=== PATIENT | female | born 1965 | race Caucasian/White ===

== ENCOUNTER 2017-07-24 07:42 | Emergency (ER) | payer BC ==
[2017-07-24] MEDS ORDERED: Dexamethasone 4 MG TAB ONE (09:07)
--- NOTE | 2017-07-24 09:07 | RAD ---
CHEST 2 VIEWS: HISTORY: Cough. COMPARISON: None. FINDINGS: The lungs are clear. No pneumothorax or effusion. Cardiac silhouette and mediastinal contours are w ithin normal limits. No acute osseous abnormality. IMPRESSION: No acute intrathoracic abnormality. POS: [facility]
== END 2017-07-24 09:12 | disposition home or self-care (01) ==
LOC: ERS 07:42
DX: J20.9 Acute bronchitis, unspecified (principal); I10 Essential (primary) hypertension; F41.9 Anxiety disorder, unspecified; F32.9 Major depressive disorder, single episode, unspecified; Z79.899 Other long term (current) drug therapy
CPT/HCPCS: 71046; J8540

== ENCOUNTER 2017-12-06 13:28 | Outpatient (CLI) | payer BC | END 2017-12-06 13:29 | disposition home or self-care (01) | LOC: BICULT 13:28 | PROVIDERS: ATTEND Orthopaedic Surgery | DX: M79.89 Other specified soft tissue disorders (principal); M79.661 Pain in right lower leg ==

== ENCOUNTER 2018-06-11 08:08 | Observation (INO) | payer BC ==
[2018-06-11 09:17] LABS: #Basophils 0.1 thou/uL (0.0-0.2); #Eosinphils 0.4 thou/uL (0.0-0.7); #Monocytes 0.6 thou/uL (0.11-0.59); #Neutrophils 4.8 thou/uL (1.40-6.50); %Basophils 1.2 % (0.0-1.0); %Eosinophils 4.6 % (0.0-10.0); %Monocytes 6.3 % (0.0-10.0); Hemoglobin 13.1 g/dL (12.0-16.0); Mean Corpuscular HGB CONC 33.7 g/dL (32.0-36.0); Mean Corpuscular Hemoglobin 29.5 pg (27.0-31.0); Mean Corpuscular Volume 87.6 fL (78.0-98.0); Mean Platelet Volume 7.7 fL (7.4-10.4); Platelet Count 274 thou/uL (130-400); RBC Distribution Width 12.2 % (11.5-14.5); Red Blood Cell (RBC) Count 4.43 mill/uL (4.20-5.40); White Blood Cell (WBC) Count 8.9 thou/uL (4.8-10.8)
[2018-06-11 09:37] LABS: ALT (SGPT) 16 U/L (8-55); AST (SGOT) 18 U/L (5-34); Alkaline Phosphatase 81 U/L (40-150); Anion Gap 10 mmol/L (10-20); BUN (Urea Nitrogen) 16 mg/dL (9.8-20.1); Bilirubin, Total 0.6 mg/dL (0.2-1.2); Calc. Creatinine Clearance 0 mL/min (70-130); Calcium 9.6 mg/dL (7.8-10.44); Carbon Dioxide 30 mmol/L (22-29); Chloride 105 mmol/L (98-107); Estimated GFR-MDRD 71; Globulin 3.5 g/dL (2.4-3.5); Glucose 90 mg/dL (70-105); Potassium 3.9 mmol/L (3.5-5.1); Protein, Total 7.5 g/dL (6.0-8.3); Sodium 141 mmol/L (136-145)
--- NOTE | 2018-06-11 09:44 | RAD ---
FRONTAL VIEW CHEST: Date 06/11/18 COMPARISON: 07/24/17. CLINICAL INDICATION: Chest pain. FINDINGS: Cardiac silhouette is accentuated. No lobar consolidation, effusion, or pneumothorax. Chest otherwise grossly stable. IMPRESSION: No focal consolidation. POS: [facility]
[2018-06-11] MEDS ORDERED: ISOVUE-370 76%-LOCM 1 ML ONE (09:54)
[2018-06-11] MEDS ORDERED: cefTRIAXone\\ROCEPHIN 2 GM VIAL ONE (10:56)
[2018-06-11] MEDS ORDERED: Aspirin Chewable 81 MG TAB ONE (10:56)
[2018-06-11] MEDS ORDERED: Nitroglycerin 0.4 MG TAB 1 EACH ONE (10:56)
--- NOTE | 2018-06-11 11:14 | ULT ---
ULTRASOUND WITH DOPPLER DUPLEX VENOUS LOWER EXTREMITY RIGHT: CPT: 66311 ICD-10-PCS: B54D INDICATION: Right lower extremity pain and edema. TECHNIQUE: Color flow Doppler, spectral waveform analysis of pulsed Doppler, and crystal-scale imaging with db mehnaz and augmentation, were used to evaluate the right common femoral, femoral, popliteal, posterior tibial, and superficial femoral, veins; and the proximal portions of the profunda femoral and greater saphenous, veins. FINDINGS: There is appropriate compressibility and flow within the imaged deep venous system of the right lower extremity without evidence of deep venous thrombosis. IMPRESSION: No deep venous thrombosis. POS: [facility]
--- NOTE | 2018-06-11 11:50 | CT ---
CT ANGIOGRAM THORAX WITH IV CONTRAST AND 3D RECONSTRUCTIONS: Date: 06/11/18 HISTORY: Chest pain. Patient reports substernal chest pain for 3 days. COMPARISON: None available. FINDINGS: Thoracic aorta is normal in caliber without evidence of an aortic dissection. No definite filling def ect is seen within the pulmonary arteries to suggest a pulmonary embolus. There is slight heterogenei ty within the enhancement of the lower lobe pulmonary arteries bilaterally. This is likely artifactua l as opposed to filling defect related to pulmonary embolus. There are scattered ground-glass opacities within the bilateral upper lobes and lower lobes, as well as the right middle lobe. These findings may be related to multifocal areas of pneumonia/pneumonitis. There are two noncalcified pulmonary nodules in the left lower lobe, each measuring approximately 6.0 mm, with what appears to be an additional pulmonary nodule within the superior segment of the left l ower lobe. There is a small, noncalcified pulmonary nodule in the right middle lobe measuring 5.0 mm. Continued follow-up is recommended. There is no evidence of lymphadenopathy. Imaging of the visualized upper abdomen demonstrates post cholecystectomy changes. Degenerative changes are noted in the spine. IMPRESSION: 1. Multifocal ground-glass densities throughout the lungs bilaterally suggesting multifocal infectio us process. Follow-up to resolution is recommended. 2. Noncalcified pulmonary nodules in the left lower lobe and right middle lobe measuring up to 6.0 m m. Follow-up evaluation in 6 months is recommended. 3. No CT evidence of a pulmonary embolus. POS: [facility]
[2018-06-11] MEDS ORDERED: traZODone HCl 50 MG TAB PO PRN (11:59)
[2018-06-11] MEDS ORDERED: Acetaminophen 325 MG TAB PO PRN (11:59)
[2018-06-11] MEDS ORDERED: Azithromycin 500 MG VIAL ONE (12:11)
--- NOTE | 2018-06-11 12:26 | HP ---
PRIMARY CARE PHYSICIAN: Kirit Mai, CHIEF COMPLAINT: Chest heaviness and elevated blood pressure. HISTORY OF PRESENT ILLNESS: This is a 52-year-old female patient with a history of hypertension, anxiety, hyperlipidemia, and chronic estrogen usage, who presented to the Emergency Department with several weeks of on and off chest pressure. Some shortness of breath. The patient states that she has been under lot of undue stress at work. Her mother has been ill for the past several years as well. She has had episodes of elevated blood pressure up to 150/96. Upon presenting to the Emergency Department, her blood pressure was 204/92, which makes her more anxious and causes the pain to be worse. In the Emergency Department, she had negative cardiac enzymes. Stable EKG, but had slightly elevated D-dimer at 0.52, underwent CT angiogram as well as venous Dopplers. CT angiogram was reportedly gave evidence of possible pneumonia. She was given IV antibiotics. She does admit to persistent episodes of upper respiratory congestion. She has had some chills, but no fevers. No cough. No shortness of breath. No other signs of pneumonia. She is now being admitted for further evaluation for rule out [place] and rule out coronary syndrome. PAST MEDICAL HISTORY: Hypertension, hyperlipidemia, anxiety, and depression. MEDICATIONS: At home include; 1. Lisinopril. 2. Prozac. 3. Bupropion. 4. Trazodone. 5. Simvastatin. 6. Estradiol. PAST SURGICAL HISTORY: She reports having had a stress test back in 2010, which she reports being negative as she has a history of pulmonary nodules, which was worked up at [facility] in the past, but never had a biopsy. SOCIAL HISTORY: She is single. She quit smoking about 8 years ago and was smoking on and off before then. Rare alcohol usage. REVIEW OF SYSTEMS: As per the history of present illness. GENERAL: She denies any recent fevers or recent illness. HEENT: Denies headache. Denies upper respiratory symptoms. Does have occasional congestion. CARDIAC: Positive chest pain. Occasional shortness of breath. No palpitations. PULMONARY: History of pulmonary nodules. No hemoptysis. No cough at this time. GI: No nausea, vomiting, abdominal pain, melena, or hematochezia. : Denies dysuria or hematuria. NEUROLOGIC: No weakness, seizure or syncope. PHYSICAL EXAMINATION: VITAL SIGNS: She is afebrile. Pulse 70s to 80s, respirations 12 to 14, and blood pressure 151/96. GENERAL: She is awake and alert. No acute distress. Speech is clear. She is pleasant, no acute distress. HEENT: Mucosa is moist. NECK: Supple. No JVD, adenopathy, or bruits. HEART: Regular rate and rhythm with no murmurs. LUNGS: Clear bilaterally. ABDOMEN: Obese, soft, nontender, and nondistended. No hepatosplenomegaly. EXTREMITIES: No clubbing, cyanosis, or edema. 2+ peripheral pulses bilaterally. No calf tenderness. Negative Rusty sign. LABORATORY DATA: Sodium 141, potassium 3.9, chloride 105, CO2 of 30, BUN and creatinine 16 and 0.84, serum glucose of 90, and AST and ALT are normal. Troponin is less than 0.01 and BNP of 31.1. D-dimer 0.52. White blood cell count 8.9, hemoglobin and hematocrit 13.1 and 38.8, and platelets 274. Chest x-ray showed no active disease. Venous Doppler showed no DVT. CT angiogram of the chest, final report is pending. ASSESSMENT AND PLAN: 1. This is a 52-year-old female patient with risk factors including obesity, family history, history of smoking, hypertension, and hyperlipidemia, now with persistent chest heaviness for the past 2 weeks. I will admit to telemetry. Continue rule out myocardial infarction protocol. We will schedule a stress echo and Cardiology consultation for further risk stratification. 2. Hypertension. We will continue her medications as well as clonidine as needed for hypertension. 3. Hyperlipidemia. We will continue moderately dosed statin therapy. Initiate aspirin therapy as well. I will discontinue her hormone therapy due to her risk factors for coronary artery disease. Further plan as per workup continues. 4. Abnormal CT chest. She has a history of pulmonary nodules. No clinical sign of pneumonia or heart failure. Will follow up Job ID: [id number] [facility]
[2018-06-11] MEDS ORDERED: PROVENTIL INHALER 6.7 G (200 INHALATIONS) INH PRN (13:00)
[2018-06-11 13:17] VITALS: BMI 42.3
[2018-06-11] MEDS ORDERED: cloNIDine 0.1 MG TAB PO PRN (15:00)
[2018-06-11] MEDS ORDERED: Amlodipine 5 MG TAB PO SCH (16:45)
--- NOTE | 2018-06-11 18:30 | CON ---
DATE OF CONSULTATION: 06/11/2018 INDICATION FOR CONSULTATION: A 52-year-old female with chest pain or chest pressure with the risk factors for coronary artery disease. HISTORY OF PRESENT ILLNESS: This is a very pleasant 52-year-old female actually is a durable patient of [facility]. She has a history of anxiety, hypertension, and hypercholesterolemia. She has noted some headaches and chest pressure and some mild blurred vision for the last several days and was noticing the blood pressure has been creeping up when she has been checking at [employer] and knows it continually gotten higher every day she checked it. She has had stress testing in the past, which was unremarkable. She has had workups in the past for lung nodules, which have been continued to watch for were not felt to be of any significance thus far. She had a CT of the chest when she came in this time, which did show again the 6.0 mm nodule in the left lower lobe with multiple ground-glass appearances, which could be infectious etiology, but she has no fevers and denies any significant other illness that would indicate pneumonia. She also was evaluated and was found to have no DVTs. At this time, she is comfortable. Her EKG is unremarkable. Her cardiac enzymes are negative. She has had an echocardiogram performed. We will evaluate that. She is also undergoing a two-day protocol for stress test and we will also evaluate those results. PAST MEDICAL HISTORY: Significant for hypertension. She has had chronic hematuria. She had had hypercholesterolemia and anxiety. SOCIAL HISTORY: She has 3 children. No heart disease. She is presently . She stops smoking many years ago, but at that time she took a half a pack a day for two years. Alcohol is none. FAMILY HISTORY: Her mother has significant coronary artery disease and cardiomyopathy and recently had a defibrillator implanted. ALLERGIES: NONE. MEDICATIONS: Prior to admission included: 1. Simvastatin 20 mg a day. 2. Lisinopril/hydrochlorothiazide 10/12.5 once a day. 3. Trazodone. 4. Estradiol. 5. Prozac. 6. Wellbutrin. REVIEW OF SYSTEMS: A 12-point review of systems, she mainly complains of some mild edema of the right ankle and lower leg, and she has some vertigo and some hematuria. Otherwise, 12-point review of systems unremarkable except as noted in the history of present illness. PHYSICAL EXAMINATION: GENERAL: Reveals a well-developed, well-nourished female. VITAL SIGNS: Blood pressure is elevated at 183/77, heart rate is 66 and regular, respiratory rate is 18, O2 saturation 99%. HEENT: Shows the head to be normocephalic and atraumatic. Carotid pulses are present. There are no bruits. No JVD. The thyroid is not enlarged. Oral mucosa is pink and moist. CHEST: Clear to auscultation. No rales, rhonchi, or wheezing. CARDIOVASCULAR: Reveals a regular rate and rhythm with normal S1, S2. There is no S3 or S4. There were no significant murmurs, heaves, thrills, bruits or rubs. ABDOMINAL: Shows obesity with positive bowel sounds. No organomegaly or masses are noted. Femoral pulses difficult to palpate but are present. EXTREMITIES: Pedal pulses are present also and there is no lower extremity edema. NEUROLOGIC: She appears to be fully intact without any gross focal motor deficit. She is able to ambulate without any difficulties. SKIN: Warm and dry. IMAGING DATA: Her EKG is unremarkable, which shows normal sinus rhythm without any acute changes. LABORATORY DATA: As noted, hemoglobin 13.1. Negative cardiac enzymes. Potassium 3.9, creatinine of 0.84, blood sugar of 90. IMPRESSION: 1. Chest discomfort, which may be due to anxiety or hypertension. We will continue to modify the medications and she will be followed by her primary care physician for the chest pressure. 2. Hypertension. We will need to modify the medications, also start her on Norvasc to get better blood pressure control. 3. Hypercholesterolemia. I did not have a recent cholesterol level. We can obtain a fasting lipid profile tomorrow morning to see exactly where her cholesterol is and she may need to have further increase in the medication for the cholesterol or the statin medications. 4. Anxiety. This will be dealt with by the primary care service. 5. Obesity. I have suggested that she try to lose some weight by diet and exercise. Thank you very much for allowing us to participate in the care of this patient. Further recommendations will depend on the results of the echocardiogram as well as stress test. Job ID: [id number]
[2018-06-11] MEDS: buPROPion HCl 100 MG TAB PO SCH (20:47)
[2018-06-11] MEDS ORDERED: buPROPion 75 MG TAB PO SCH (21:00)
[2018-06-11] MEDS ORDERED: Simvastatin 40 MG TAB PO SCH (21:00)
[2018-06-12 06:39] LABS: ALT (SGPT) 16 U/L (8-55); AST (SGOT) 18 U/L (5-34); Albumin 3.9 g/dL (3.5-5.0); Alkaline Phosphatase 71 U/L (40-150); Anion Gap 10 mmol/L (10-20); BUN (Urea Nitrogen) 11 mg/dL (9.8-20.1); Bilirubin, Total 0.6 mg/dL (0.2-1.2); Calc. Creatinine Clearance 157 mL/min (70-130); Calcium 9.2 mg/dL (7.8-10.44); Carbon Dioxide 28 mmol/L (22-29); Cardiac Risk 2.9 (Less than 4.5); Chloride 105 mmol/L (98-107); Cholesterol 150 mg/dl (< 200 Desired); Estimated GFR-MDRD 80; Globulin 3.3 g/dL (2.4-3.5); Glucose 102 mg/dL (70-105); HDL Cholesterol 52 mg/dL (>60 Neg Risk); LDL Cholesterol, Calculated 83 mg/dL; Potassium 3.8 mmol/L (3.5-5.1); Protein, Total 7.2 g/dL (6.0-8.3); Sodium 139 mmol/L (136-145); Triglycerides 77 mg/dL (Less than 150)
[2018-06-12] MEDS: buPROPion HCl 100 MG TAB PO SCH (08:49)
[2018-06-12] MEDS ORDERED: Aspirin 81 mg Enteric Coated Tablet PO SCH (09:00)
[2018-06-12] MEDS ORDERED: Lisinopril/Hydrochlorothiazide 10 mg/12.5 mg Tablet PO SCH (09:00)
[2018-06-12] MEDS ORDERED: Enoxaparin Sodium 40 MG/0.4 ML SYRINGE SC SCH (09:00)
[2018-06-12] MEDS ORDERED: FLUoxetine HCl 20 MG CAP PO SCH (09:00)
[2018-06-12] MEDS ORDERED: Amlodipine 5 MG TAB PO SCH (09:00)
[2018-06-12] MEDS ORDERED: Regadenoson 0.4 MG/5 ML SYRINGE ONE (10:14)
--- NOTE | 2018-06-12 11:44 | PDOC.CTH ---
Cardiology Progress Note - Subjective The pt seen and examined. No overnight events. No cardiac complaints. - Objective Vital Signs Temp Pulse Resp BP BP Pulse Ox 06/12/18 08:49 67 06/12/18 08:48 67 06/12/18 07:55 98.9 F 67 20 136/73 96 06/12/18 03:15 98 F 65 18 153/79 H 95 06/12/18 02:07 97.7 F 70 20 183/82 H 97 Weight 254 lb 06/11/18 06/12/18 06/13/18 06:59 06:59 06:59 Intake Total 790 Output Total 1000 Balance -210 - Physical Examination General/Neuro: alert & oriented x3 Neck: no JVD present Lungs: CTA Heart: RRR Abdomen: soft Extremities: other: (No edema) - Labs Result Diagrams: 06/11/18 09:09 06/12/18 05:12 Troponin/CKMB Troponin I Less than 0.010 ng/mL (< 0.028) 06/11/18 14:45 - Assessment/Plan 1. CP - Stress test was done today and the result is pending for now 2. HTN - well controlled with current medication 3. Hyperlipidemia - on Zocor 40mg with well controlled cholesterol 4. Anxiety - MAR reviewed * When the pt's stress test is negative, the pt is stable to d/c home. The pt will f/u with Dr Nails' office within 2 wks. Pt. seen andc eval. by me. I agree with the A/P by the [facility]. I reviewed the stress test and this is normal. there is a very small area at the apex that may indicate reversible ischemia but no indication to cath. Continue medical Tx. She can f/u with me in a month. Chest clear. RRR. Review of Systems - Review of Systems Constitutional: reports: no symptoms reported EENTM: reports: no symptoms reported Respiratory: reports: no symptoms reported Cardiac (ROS): reports: no symptoms reported ABD/GI: reports: no symptoms reported : reports: no symptoms reported Musculoskeletal: reports: no symptoms reported
[2018-06-12 15:55] VITALS: BP 127/60; TEMP 97.9
--- NOTE | 2018-06-12 15:56 | DIS ---
DATE OF ADMISSION: 06/11/2018 DATE OF DISCHARGE: 06/12/2018 PRIMARY CARE PHYSICIAN: Mitul Mai, DO ADMISSION DIAGNOSES: Chest pain and elevated blood pressure. DISCHARGE DIAGNOSES: Atypical noncardiac chest pain, elevated blood pressure, abnormal CT chest, pulmonary nodule, hypertension, and hyperlipidemia. CONSULTATIONS: Dr. Nails for Cardiology. PROCEDURES: Echocardiogram, Cardiolite stress test, vascular ultrasound, CT angiogram of the chest, telemetry monitoring, rule out [place] protocol. HOSPITAL COURSE: This is a 52-year-old female patient with obesity, hypertension, hyperlipidemia, and past history of pulmonary nodules and chronic estrogen replacement, presents to the emergency department with several weeks of on and off chest pressure. She stated she is having a lot of stress lately. She is having more shortness of breath. Her blood pressure had been higher in the 150s over 90s and in the emergency department, it was over 200 systolic, which is causing her to be more anxious. In the emergency department, she had a slightly elevated D-dimer at 0.52. In the emergency department, obtained a CT angiogram as well as venous Dopplers. The venous Doppler showed no signs of DVT, but CT angiogram revealed evidence of possible pneumonia and she was given IV antibiotics in spite of not having any cough, congestion, fevers, or chills. She was admitted, she eventually ruled out for an [place] with negative cardiac enzymes. Echocardiogram was done, which showed no abnormalities with ejection fraction of 55%. Chest x-ray again was clear. Fasting lipids were normal with a cholesterol of 150, triglycerides of 77, LDL of 83, and HDL of 52. She underwent a cardiac stress test, which was pending at this time and assuming it was negative, the patient is to be discharged home as per Cardiology evaluation. Dr. Nails and her team was following the patient throughout the hospitalization, they agreed with the stress test as well as echocardiogram. She felt like the chest discomfort was atypical, possibly due to the hypertension and anxiety, and they just added the Norvasc for better blood pressure control. She remained stable throughout the hospitalization and stable for discharge. DISCHARGE PHYSICAL EXAMINATION: VITAL SIGNS: Temperature 97.7, pulse is 71, respirations 20, blood pressure 130/60, pulse ox is 97% on room air. GENERAL: She is awake and alert. No acute distress. Speech is clear. NECK: Supple. HEART: Regular rate and rhythm without murmurs. LUNGS: Clear bilaterally. ABDOMEN: Soft, obese, nontender, nondistended. EXTREMITIES: Some swelling around her right ankle, but no other dependent edema. LABORATORY DATA: White blood cell count 8.9 thousand, hemoglobin and hematocrit are 13.1 and 38.8, and platelets of 274. Sodium 139, potassium 3.8, chloride 105, CO2 of 28, BUN and creatinine are 11 and 0.76, serum glucose of 102. Liver enzymes are normal. Cardiac enzymes less than 0.01 x3. BNP was 31.1. Cholesterol as described above. Again, echocardiogram revealed an ejection fraction of 55%. A stress test is pending at this time. DISCHARGE MEDICATIONS: Include; 1. Tylenol p.r.n. 2. Albuterol p.r.n. cough. 3. Amlodipine 5 mg daily. 4. Aspirin 81 mg daily. 5. Wellbutrin 100 mg b.i.d. 6. Fluoxetine 20 mg daily. 7. Lisinopril/hydrochlorothiazide 10/12.5 one daily. 8. Protonix 40 mg p.r.n. 9. Zocor to be increased to 40 mg. 10. Trazodone 50 mg at bedtime and she is to discontinue the estradiol. FOLLOWUP INSTRUCTIONS: The patient is to follow up in my office in one week and follow up with Dr. Nails in 2 to 3 weeks, have repeat CT chest for pulmonary nodules in about 6 months. Job ID: [id number]
--- NOTE | 2018-06-12 16:56 | NM ---
CARDIAC SPECT: HISTORY: A 52-year-old female with chest pain, hypertension, hypercholesterolemia, and a family history of cor onary artery disease. TECHNIQUE: A myocardial perfusion scan was performed using the single isotope two-day protocol with 32 millicuri es of technetium 99m sestamibi, injected intravenously, for rest and stress images. Exercise stress was monitored and interpreted by . FINDINGS: Homogeneous tracer distribution is seen in the myocardial segments on stress and rest images without fixed or reversible defects. GATED SPECT LVEF: 61%. WALL MOTION EXAM: Normal. IMPRESSION: Normal myocardial perfusion scan. POS: [facility]
--- NOTE | 2018-06-13 08:36 | STRESS ---
Acquisition Time: 2018-06-12 10:50:46 Total Exercise Time: 00:06:00 Test Indications: CHEST PAIN Medications: Protocol: MARTHA Max HR: 118 BPM 70% of Pred: 168 BPM Max BP: 140/060 mmHG Max Work Load: 7.0 METS RESTING ECG: NORMAL SINUS RHYTHM AT 74 BPM SYMPTOMS: DYSPNEA NORMAL BP RESPONSE ECTOPY: NONE ECG STRESS: NO SIGNIFICANT CHANGES INTERPRETATION: AWAIT NUCLEAR IMAGES FOR DEFINITIVE DIAGNOSIS Confirmed by NASRIN MELGAR ([id number]) on 06/13/2018 8:36:01 AM Referred By: Confirmed By:NASRIN MELGAR
== END 2018-06-12 18:55 | disposition home or self-care (01) ==
LOC: ERS 08:08 → 2SW 12:26
PROVIDERS: ADMIT Family Medicine; ATTEND Family Medicine
DX: R07.89 Other chest pain (principal); I10 Essential (primary) hypertension; E78.5 Hyperlipidemia, unspecified; R91.1 Solitary pulmonary nodule; F41.9 Anxiety disorder, unspecified; F32.9 Major depressive disorder, single episode, unspecified; E78.00 Pure hypercholesterolemia, unspecified; E66.9 Obesity, unspecified; Z68.41 Body mass index [BMI] 40.0-44.9, adult; Z87.891 Personal history of nicotine dependence; Z79.818 Long term (current) use of other agents affecting estrogen receptors and estrogen levels; Z79.899 Other long term (current) drug therapy
CPT/HCPCS: 36415; 71045; 71275; 78452; 80053; 80061; 83880; 84484; 85025; 85379; 93005; 93017; 93306; 96365; 96367; 96372; A9500; G0378; J0456; J0696; J1650; J2785; Q9966